=== PATIENT | female | born 1985 | race Caucasian/White ===

== ENCOUNTER 2016-08-21 06:27 | Day surgery (SDC) | payer MEDICAID ==
[~2016-08-21] VITALS: Ht 162.6 cm; Wt 68.0 kg
[~2016-08-21 06:27] MED LIST: NONE PER PT
[2016-08-21 06:41] VITALS: BP 104/73
[2016-08-21] MEDS ORDERED: MIDAZOLAM 1 MG/ML, 2ML ONE (06:45)
[2016-08-21] MEDS ORDERED: NO MEDICATIONS (06:45)
[2016-08-21] MEDS ORDERED: FENTANYL PF 100 MCG/2ML ONE ×2 (06:45→08:16)
[2016-08-21] MEDS ORDERED: BUPIVACAINE/PF-EPI 0.25% 1:200K ONE (06:47)
[2016-08-21] MEDS ORDERED: SCOPOLAMINE PATCH, 1.5MG PATCH.TD72 TD ONE ×2 (06:51→15:17)
[2016-08-21] MEDS: LACTATED RINGERS 1,000 ML IV SCH ×2 (07:11→08:48)
[2016-08-21] MEDS ORDERED: PROPOFOL 10 MG/ML, 20ML ONE (07:20)
[2016-08-21] MEDS ORDERED: DEXAMETHASONE 4 MG/ML, 1ML ONE (07:20)
[2016-08-21] MEDS ORDERED: ROCURONIUM 10 MG/ML ONE (07:20)
[2016-08-21] MEDS ORDERED: CEFAZOLIN 1,000 MG ONE (07:20)
[2016-08-21] MEDS ORDERED: KETOROLAC 30 MG/1 ML ONE (07:20)
[2016-08-21] MEDS ORDERED: ONDANSETRON 2MG/ML, 2ML ONE (07:20)
[2016-08-21] MEDS ORDERED: NEOSTIGMINE 1 MG/ML, 10ML ONE (07:20)
[2016-08-21] MEDS ORDERED: GLYCOPYRROLATE 0.2MG/1ML ONE (07:20)
[2016-08-21 07:23] LABS: HCG UR OBC PASS
[2016-08-21] MEDS ORDERED: MEPERIDINE/PF 25MG/0.5ML IVPush PRN (08:00)
[2016-08-21] MEDS ORDERED: HYDROmorphone 1 MG/ML, 1ML IV PRN (08:00)
[2016-08-21] MEDS ORDERED: EPHEDRINE 50 MG/ML, 1ML IVPush PRN (08:00)
[2016-08-21] MEDS ORDERED: ONDANSETRON 2MG/ML, 2ML IVPush PRN (08:00)
[2016-08-21] MEDS ORDERED: hydrALAzine 20 MG/ML, 1ML IV PRN (08:00)
[2016-08-21] MEDS ORDERED: METOPROLOL 1 MG/ML, 5ML IV PRN (08:00)
[2016-08-21] MEDS ORDERED: OXYcodone 5 MG/5 ML ORAL.SOL UDC PO PRN (08:00)
[2016-08-21] MEDS ORDERED: LABETALOL 5MG/ML, 20ML IV PRN (08:00)
[2016-08-21] MEDS ORDERED: ACETAMINOPHEN 325 MG TABLET PO PRN (08:00)
[2016-08-21] MEDS ORDERED: ALBUTEROL SULFATE 2.5 MG/3 ML NPPB PRN (08:00)
[2016-08-21] MEDS ORDERED: OXYcodone 5 MG/5 ML ORAL.SOL UDC ONE (08:17)
[2016-08-21] MEDS: FENTANYL PF 100 MCG/2ML IV PRN ×2 (08:20→08:28)
[2016-08-21] MEDS ORDERED: HYDROmorphone 2 MG/ML, 1ML ONE (08:25)
== END 2016-08-21 11:20 | disposition home or self-care (01) ==
LOC: OUT 06:27
PROVIDERS: ATTEND Surgery
DX: K80.10 Calculus of gallbladder with chronic cholecystitis without obstruction (principal); K66.0 Peritoneal adhesions (postprocedural) (postinfection); Z72.89 Other problems related to lifestyle; Z87.891 Personal history of nicotine dependence
CPT/HCPCS: 47562; 81025; 88304; J0690; J1100; J1170; J1885; J2250; J2405; J2704; J2710; J3010; J7120; J3490